=== PATIENT | male | born 1950 | race Caucasian/White ===

== ENCOUNTER 2019-02-16 07:18 | Emergency (ER) | payer SELFPAY ==
--- NOTE | 2019-02-16 07:36 | ED Physician Documentation ---
PD HPI MALE - Stated complaint Stated Complaint: ABD PX - History obtained from History obtained from: Patient - History of Present Illness Timing - onset: How many days ago (2) Timing - duration: Days (2) Timing - details: Abrupt onset, Still present (had some difficulty the past couple of days, then no urine out since last night.) Associated symptoms: Unable to urinate Similar symptoms before: Diagnosis (occurred once prior also when he had flown in to [place], but it resolved itself after half a day. Otherwise has had weak stream for urination for several months.) Recently seen: Not recently seen Review of Systems Constitutional: denies: Fever, Chills, Myalgias Nose: denies: Rhinorrhea / runny nose, Congestion Throat: denies: Sore throat Respiratory: denies: Cough GI: reports: Abdominal Pain (suprapubic), Constipation (mild). denies: Nausea, Vomiting, Diarrhea : reports: Unable to Void Neurologic: denies: Generalized weakness, Near syncope, Altered mental status PD PAST MEDICAL HISTORY - Past Medical History Cardiovascular: None Respiratory: None Neuro: None Endocrine/Autoimmune: None : Benign prostate hypertrophy (takes saw palmetto) - Present Medications Home Medications: Ambulatory Orders Medication Instructions Recorded Confirmed Docusate Sodium 100 mg PO DAILY #15 capsule 02/16/19 Tamsulosin [Flomax] 0.4 mg PO DAILY #15 capsule 02/16/19 - Allergies Allergies/Adverse Reactions: Allergies Allergy/AdvReac Type Severity Reaction Status Date / Time No Known Drug Allergies Allergy Verified 02/16/19 08:00 PD ED PE NORMAL - Vitals Vital signs reviewed: Yes - General General: Alert and oriented X 3, Well developed/nourished, Other (appears very uncomfortable due to urinary retention. ) - Cardiac Cardiac: RRR, No murmur - Respiratory Respiratory: Clear bilaterally - Abdomen Abdomen: Normal bowel sounds, Soft, No organomegaly, Other (fullness and tenderness over suprapubic area. ) - Male Male : Other (normal external genitalia) - Rectal Rectal: Other (soft stool in vault; no impaction) - Back Back: No CVA TTP - Derm Derm: Normal color, Warm and dry Results - Vitals Vitals: Vital Signs - 24 hr 02/16/19 02/16/19 07:25 09:47 Temperature 36.7 C 36.7 C Heart Rate 59 L 59 L Respiratory 24 18 Rate Blood Pressure 194/154 H 137/84 H O2 Saturation 99 99 Oxygen O2 Source Room air - Labs Labs: Laboratory Tests 02/16/19 08:12 Urine Color YELLOW Urine Clarity CLEAR Urine pH 6.0 Ur Specific [place] 1.020 Urine Protein NEGATIVE Urine Glucose (UA) NEGATIVE Urine Ketones 15 H Urine Occult Blood TRACE-INTA Urine Nitrite NEGATIVE Urine Bilirubin NEGATIVE Urine Urobilinogen 0.2 (NORMAL) Ur Leukocyte Esterase NEGATIVE Ur Microscopic Review NOT INDICATED Urine Culture Comments NOT INDICATED PD MEDICAL DECISION MAKING - ED course Complexity details: considered differential (feels much better after robles placed. Rectal done to ensure no impaction contributing.), d/w patient Departure - Departure Disposition: 01 Home, Self Care Clinical Impression: Acute urinary retention Condition: Stable Record reviewed to determine appropriate education?: Yes Instructions: ED Catheter Care Robles, ED Retention Urinary Male Prescriptions: Docusate Sodium 100 mg PO DAILY #15 capsule Tamsulosin [Flomax] 0.4 mg PO DAILY #15 capsule Comments: Leave the Robles catheter in for couple of days and add tamsulosin medication to help reduce prostate size. Continue your saw palmetto. Presumably this will improve your chances of being able to urinate without the catheter compared to today. No signs of bladder infection. Presume you does have some prostate inflammation that should improve with time and also added medication. Return in a couple of days for catheter removal. Stay well-hydrated. Use daily stool softener as well. Discharge Date/Time: 02/16/19 09:30
[2019-02-16 08:21] LABS: BILIRUBIN,URINE NEGATIVE (NEGATIVE); GLUCOSE, URINE (UA) NEGATIVE (NEGATIVE); KETONES,URINE (UA) 15 mg/dL (NEGATIVE); LEUKOCYTE ESTERASE, URINE NEGATIVE (NEGATIVE); NITRITE,URINE NEGATIVE (NEGATIVE); OCCULT BLOOD,URINE TRACE-INTA (NEGATIVE); PROTEIN,URINE NEGATIVE (NEGATIVE); UROBILINOGEN,URINE 0.2 (NORMAL) E.U./dL (NORMAL)
[2019-02-16 08:22] LABS: CLARITY,URINE CLEAR (CLEAR)
[2019-02-16] MEDS ORDERED: TAMSULOSIN 0.4 MG CAPSULE PO STA (08:30)
[2019-02-16 09:48] VITALS: BP 137/84
== END 2019-02-16 09:30 | disposition home or self-care (01) ==
LOC: ED 07:18
DX: N40.1 Benign prostatic hyperplasia with lower urinary tract symptoms (principal); R33.8 Other retention of urine
CPT/HCPCS: 51702; 81003; 99283; A9270; 81001; 87086

== ENCOUNTER 2019-02-19 07:06 | Emergency (ER) | payer SELFPAY ==
--- NOTE | 2019-02-19 07:14 | ED Physician Documentation ---
History of Present Illness - Stated complaint Stated Complaint: CATH REMOVAL - History obtained from History obtained from: Patient - Additonal information Additional information: Patient is a 68-year-old male presenting with request for Gray catheter removal. Catheter was placed in this ED several days ago for urinary retention, likely due to benign prostatic hypertrophy. Patient was placed on Flomax but has been taking this medication compliantly. Patient denies any complications with the catheter or medication, as well as any new fever, chills, nausea, vomiting, abdominal pain, or stool changes. Patient is visiting family from the [facility] and does not have a primary care physician in the area, nor does he have one in the [facility]. No other improving or worsening factors noted. Review of Systems Constitutional: denies: Fever GI: denies: Abdominal Pain, Nausea, Vomiting, Diarrhea : denies: Dysuria PD PAST MEDICAL HISTORY - Past Medical History Cardiovascular: None Respiratory: None Neuro: None Endocrine/Autoimmune: None : Benign prostate hypertrophy (takes andres palmmichelle) - Past Surgical History Past Surgical History: No - Present Medications Home Medications: Ambulatory Orders Medication Instructions Recorded Confirmed Docusate Sodium 100 mg PO DAILY #15 capsule 02/16/19 Tamsulosin [Flomax] 0.4 mg PO DAILY #15 capsule 02/16/19 - Allergies Allergies/Adverse Reactions: Allergies Allergy/AdvReac Type Severity Reaction Status Date / Time No Known Drug Allergies Allergy Verified 02/19/19 07:23 - Social History Does the pt smoke?: No Smoking Status: Never smoker PD ED PE NORMAL - Vitals Vital signs reviewed: Yes - General General: Alert and oriented X 3, No acute distress, Well developed/nourished, Other (Slightly anxious about catheter removal) - HEENT HEENT: Atraumatic, Moist mucous membranes - Cardiac Cardiac: RRR, No murmur - Respiratory Respiratory: No respiratory distress, Clear bilaterally - Abdomen Abdomen: Soft, Non tender, Non distended - Derm Derm: Normal color, Warm and dry, No rash - Extremities Extremities: No deformity, No tenderness to palpate - Neuro Neuro: Alert and oriented X 3, No motor deficit, No sensory deficit - Psych Psych: Normal mood, Normal affect Results - Vitals Vitals: Vital Signs - 24 hr 02/19/19 07:15 Temperature 36.4 C L Heart Rate 80 Respiratory 18 Rate Blood Pressure 161/107 H O2 Saturation 98 Oxygen O2 Source Room air PD MEDICAL DECISION MAKING - ED course Complexity details: reviewed old records, considered differential, d/w patient, d/w family ED course: Patient presenting with request for Gray catheter removal. Patient was seen several days ago in this ED for urinary retention and Gray catheter was placed and patient started on Flomax. Patient denies any complications with catheter and has been taking Flomax compliantly. Catheter removed without issue in the ED. Advised him on supportive cares, diet hydration recommendations, return precautions, and follow-up, particularly with primary care physician and/or urology. Patient and family voiced understanding and are comfortable with discharge plan. Departure - Departure Disposition: 01 Home, Self Care Clinical Impression: Urinary catheter insertion/adjustment/removal Condition: Good Instructions: ED Retention Urinary Male Follow-Up: Vandana Arvizu MD [Provider Admit Priv/Credential] - Comments: Recommend hydration, healthy diet, and normal exercise. Please continue Flomax through completion of prescription to help prevent return of urinary retention. Recommend follow-up with primary care physician and/or urology in the next 2 to 3 weeks, certainly before you return to the [facility]. Return to the ED so sae if you experience urinary retention again, abdominal pain, vomiting, or other concerns.
[2019-02-19 08:04] VITALS: BP 144/89
== END 2019-02-19 08:02 | disposition home or self-care (01) ==
LOC: ED 07:06
DX: Z46.6 Encounter for fitting and adjustment of urinary device (principal); N40.0 Benign prostatic hyperplasia without lower urinary tract symptoms
CPT/HCPCS: 99281

== ENCOUNTER 2019-03-07 20:40 | Emergency (ER) | payer SELFPAY ==
--- NOTE | 2019-03-07 20:46 | ED Physician Documentation ---
PD HPI MALE - Stated complaint Stated Complaint: UNABLE TO URINATE - History obtained from History obtained from: Patient - History of Present Illness Timing - onset: How many days ago (3) Timing - duration: Days (3) Timing - details: Gradual onset Pain level now: 8 Associated symptoms: Urinary frequency, Unable to urinate, Abdominal pain. No: Dysuria, Hematuria (Only passes small dribbles), Back pain Similar symptoms before: Diagnosis Recently seen: Emergency Dept - Additional information Additional information: This is a 68-year-old man who presents with complaints that he is visiting here from the [facility]. He was seen about 3 weeks ago and had to have a Gray catheter placed for acute urinary retention and was given a prescription for Flomax. The Gray was subsequently removed about 4 days afterwards and he was doing fine on the Flomax. He ran out 3 days ago and now the symptoms are returning and is been getting progressively more severe. He can only just get out of dribble of urine advised him about 15 minutes of comfort before it starts building up again. He has not seen blood in the urine. He is rating the pain now to 8.5 out of 10. Denies fever, back pain, leg pain or nausea. He is returning home in 9 days. He had a known pre-existing prostate enlargement that was being treated with saw palmetto and he just thinks the change in the routine with the flight and the diet has made things abruptly more severe. He plans to follow-up with his primary provider when he returns back to the [facility]. Review of Systems Constitutional: denies: Fever GI: denies: Nausea, Vomiting : reports: Dysuria, Frequency, Hesitancy, Unable to Void. denies: Hematuria Musculoskeletal: denies: Back pain Neurologic: reports: Other (No radicular symptoms) PD PAST MEDICAL HISTORY - Past Medical History Cardiovascular: None Respiratory: None Neuro: None Endocrine/Autoimmune: None : Benign prostate hypertrophy (takes saw palmetto) - Past Surgical History Past Surgical History: No - Present Medications Home Medications: Ambulatory Orders Medication Instructions Recorded Confirmed Docusate Sodium 100 mg PO DAILY #15 capsule 02/16/19 Tamsulosin [Flomax] 0.4 mg PO DAILY #15 capsule 02/16/19 Tamsulosin [Flomax] 0.4 mg PO DAILY #30 capsule 03/07/19 - Allergies Allergies/Adverse Reactions: Allergies Allergy/AdvReac Type Severity Reaction Status Date / Time No Known Drug Allergies Allergy Verified 02/19/19 07:23 - Social History Does the pt smoke?: No Smoking Status: Never smoker Does the pt have substance abuse?: No PD ED PE NORMAL - Vitals Vital signs reviewed: Yes - General General: Alert and oriented X 3, No acute distress, Well developed/nourished - HEENT HEENT: Atraumatic - Cardiac Cardiac: RRR, No murmur - Respiratory Respiratory: No respiratory distress, Clear bilaterally - Abdomen Abdomen: Normal bowel sounds, Soft, Other (Tender in the suprapubic region. There is a little fullness but not a large firm bladder.) - Derm Derm: Normal color, No rash - Neuro Neuro: Alert and oriented X 3, Other (No gross neurological deficits.) - Psych Psych: Normal mood, Normal affect Results - Vitals Vitals: Vital Signs - 24 hr 03/07/19 20:43 Temperature 36.4 C L Heart Rate 72 Respiratory 18 Rate Blood Pressure 141/93 H O2 Saturation 99 Oxygen O2 Source Room air - EKG (time done) 2028 Rate: Rate (enter#) Rhythm: NSR QRS: LVH Ischemia: Normal ST segments Compare to prior EKG: Old EKG unavailable - Labs Labs: Laboratory Tests 03/07/19 21:42 Urine Color YELLOW Urine Clarity CLEAR Urine pH 6.0 Ur Specific [place] 1.015 Urine Protein NEGATIVE Urine Glucose (UA) NEGATIVE Urine Ketones TRACE Urine Occult Blood SMALL H Urine Nitrite NEGATIVE Urine Bilirubin NEGATIVE Urine Urobilinogen 0.2 (NORMAL) Ur Leukocyte Esterase NEGATIVE Urine RBC 6-10 H Urine WBC 0-3 Ur Squamous Epith Cells FEW Squamous Urine Bacteria Few Urine Yeast PRESENT Ur Microscopic Review INDICATED Urine Culture Comments NOT INDICATED PD MEDICAL DECISION MAKING - ED course Complexity details: reviewed results, d/w patient ED course: Patient had a about 800 cc of urine in his bladder. A Gray will be left in. He will be started back on the Flomax. The urine showed small blood but no sign of infection. Patient will be returning to the [facility] in 9 days. He does not want to go through security with Gray catheter and so the plan is for him to return and have it removed in the next 4 to 5 days. He plans to follow-up when he returns home with a urologist for screening for prostate cancer and also evaluation on whether or not he needs to have treatment for prostate enlargement. Departure - Departure Disposition: 01 Home, Self Care Clinical Impression: Acute urinary retention Condition: Good Instructions: ED Catheter Care [place], [facility] Retention Urinary Male Follow-Up: doctor,your [Other] Prescriptions: Tamsulosin [Flomax] 0.4 mg PO DAILY #30 capsule Comments: Keep the Gray bag emptied. May return to have the Gray catheter removed in for 5 days if you desire. Max as prescribed daily. You need to make an appointment and follow-up with your primary or urologist when you return home to the [facility].
[2019-03-07 21:45] LABS: BILIRUBIN,URINE NEGATIVE (NEGATIVE); GLUCOSE, URINE (UA) NEGATIVE (NEGATIVE); KETONES,URINE (UA) TRACE mg/dL (NEGATIVE); LEUKOCYTE ESTERASE, URINE NEGATIVE (NEGATIVE); NITRITE,URINE NEGATIVE (NEGATIVE); OCCULT BLOOD,URINE SMALL (NEGATIVE); PROTEIN,URINE NEGATIVE (NEGATIVE); UROBILINOGEN,URINE 0.2 (NORMAL) E.U./dL (NORMAL)
[2019-03-07 21:48] LABS: CLARITY,URINE CLEAR (CLEAR)
[2019-03-07 22:00] LABS: BACTERIA,URINE Few /HPF (None Seen); SQUAMOUS EPITHELIAL CELL,UR FEW Squamous (<= Few)
[2019-03-07 22:01] LABS: YEAST,URINE PRESENT
[2019-03-07 22:26] VITALS: BP 134/90
== END 2019-03-07 22:24 | disposition home or self-care (01) ==
LOC: ED 20:40
DX: N40.1 Benign prostatic hyperplasia with lower urinary tract symptoms (principal); R33.8 Other retention of urine; R35.0 Frequency of micturition; I51.7 Cardiomegaly
CPT/HCPCS: 51702; 81001; 81003; 87086; 99283; 99284

== ENCOUNTER 2019-03-08 14:39 | Emergency (ER) | payer SELFPAY ==
--- NOTE | 2019-03-08 15:23 | ED Physician Documentation ---
PD HPI MALE - Stated complaint Stated Complaint: BLOOD IN URINE - Chief complaint Chief Complaint: UTI - History obtained from History obtained from: Patient - History of Present Illness Timing - onset: Today (He had a Gray placed last night for urinary retention. Today the urine is bloody but without chunks or discomfort.) Review of Systems Constitutional: denies: Fever, Chills Respiratory: denies: Dyspnea, Cough GI: denies: Abdominal Pain, Nausea, Vomiting PD PAST MEDICAL HISTORY - Past Medical History Cardiovascular: None Respiratory: None Neuro: None Endocrine/Autoimmune: None : Benign prostate hypertrophy (takes andres figueredo) - Past Surgical History Past Surgical History: No - Present Medications Home Medications: Ambulatory Orders Medication Instructions Recorded Confirmed Docusate Sodium 100 mg PO DAILY #15 capsule 02/16/19 Tamsulosin [Flomax] 0.4 mg PO DAILY #15 capsule 02/16/19 Tamsulosin [Flomax] 0.4 mg PO DAILY #30 capsule 03/07/19 - Allergies Allergies/Adverse Reactions: Allergies Allergy/AdvReac Type Severity Reaction Status Date / Time No Known Drug Allergies Allergy Verified 02/19/19 07:23 - Social History Does the pt smoke?: No Smoking Status: Never smoker Does the pt have substance abuse?: No PD ED PE NORMAL - Vitals Vital signs reviewed: Yes - General General: Alert and oriented X 3, No acute distress - Abdomen Abdomen: Soft, Non tender - Male Male : Other (Gray in place, the bag has vignesh colored bloody urine in it without being opaque or having clots.) - Derm Derm: Normal color - Extremities Extremities: No calf tenderness / cord - Neuro Neuro: Alert and oriented X 3, Normal speech Results - Vitals Vitals: Vital Signs - 24 hr 03/08/19 14:47 Temperature 36.5 C Heart Rate 72 Respiratory 18 Rate Blood Pressure 139/97 H O2 Saturation 97 Oxygen O2 Source Room air Departure - Departure Disposition: 01 Home, Self Care Clinical Impression: Acute urinary retention Condition: Good Record reviewed to determine appropriate education?: Yes Health Concerns: bloody urine Plan of Treatment: push fluids Care Goals: as below Assessment: as above Instructions: ED Catheter Care Gray Comments: Continue the current plan of care, drink plenty of fluids. Return for discomfort, fevers, back pain or if the urine has clots in it. Follow-up with the urologist on return home.
[2019-03-08 15:32] VITALS: BP 158/105
== END 2019-03-08 15:31 | disposition home or self-care (01) ==
LOC: ED 14:39
DX: N40.1 Benign prostatic hyperplasia with lower urinary tract symptoms (principal); R31.9 Hematuria, unspecified; R33.8 Other retention of urine
CPT/HCPCS: 99282; 99283

== ENCOUNTER 2019-03-14 12:01 | Emergency (ER) | payer SELFPAY ==
--- NOTE | 2019-03-14 12:13 | ED Physician Documentation ---
History of Present Illness - Stated complaint Stated Complaint: MALE /CATH - Chief complaint Chief Complaint: General - History obtained from History obtained from: Patient - Additonal information Additional information: Patient is a 68-year-old male presenting to the ED for request of removal of Gray catheter that was placed here recently. Patient is visiting from the [facility] for the past 1 month and has been in the ED several times for this issue. Patient has not followed up locally with primary care physician or urology, but plans to do so when he returns to the [facility]. Patient is taking Flomax daily. He denies any complications with this recent catheter placement, as well as any other issues such as fever, nausea, vomiting, abdominal pain, stool changes or other complaints. No other improving or worsening factors noted. Review of Systems Constitutional: denies: Fever GI: denies: Abdominal Pain, Nausea, Vomiting, Diarrhea : denies: Dysuria PD PAST MEDICAL HISTORY - Past Medical History Cardiovascular: None Respiratory: None Neuro: None Endocrine/Autoimmune: None GI: None : Benign prostate hypertrophy (takes andres figueredo) Psych: None Musculoskeletal: None Derm: None - Past Surgical History Past Surgical History: No - Present Medications Home Medications: Ambulatory Orders Medication Instructions Recorded Confirmed Docusate Sodium 100 mg PO DAILY #15 capsule 02/16/19 Tamsulosin [Flomax] 0.4 mg PO DAILY #15 capsule 02/16/19 Tamsulosin [Flomax] 0.4 mg PO DAILY #30 capsule 03/07/19 - Allergies Allergies/Adverse Reactions: Allergies Allergy/AdvReac Type Severity Reaction Status Date / Time No Known Drug Allergies Allergy Verified 03/14/19 12:08 - Social History Does the pt smoke?: No Smoking Status: Never smoker Does the pt drink ETOH?: No Does the pt have substance abuse?: No - Immunizations Immunizations are current?: Yes - POLST Patient has POLST: No PD ED PE NORMAL - Vitals Vital signs reviewed: Yes - General General: Alert and oriented X 3, No acute distress, Well developed/nourished - HEENT HEENT: Atraumatic, Moist mucous membranes - Cardiac Cardiac: RRR, No murmur - Respiratory Respiratory: No respiratory distress, Clear bilaterally - Abdomen Abdomen: Normal bowel sounds, Soft, Non tender, Non distended - Derm Derm: Normal color, Warm and dry, No rash - Extremities Extremities: No deformity, No tenderness to palpate - Neuro Neuro: Alert and oriented X 3, No motor deficit, No sensory deficit - Psych Psych: Normal mood, Normal affect Results - Vitals Vitals: Vital Signs - 24 hr 03/14/19 12:03 Temperature 36.6 C Heart Rate 85 Respiratory 18 Rate Blood Pressure 149/100 H O2 Saturation 98 Oxygen O2 Source Room air PD MEDICAL DECISION MAKING - ED course Complexity details: reviewed old records, considered differential, d/w patient, d/w family ED course: Patient presenting for removal of Gray catheter. Patient denies any complications with catheter or other complaints at this time. Advised patient on need to continue Flomax as prescribed. Also recommended close follow-up with primary care physician or urology either locally if he is able to before departing to the [facility] or immediately upon return to the [facility]. Al so advised him on other supportive cares, diet hydration recommendations, recommendations during flying to the [facility], return precautions and follow- up. Patient and family voiced understanding and are comfortable with discharge plan. Departure - Departure Disposition: 01 Home, Self Care Clinical Impression: Encounter for Gray catheter removal Condition: Good Instructions: ED Retention Urinary Male Follow-Up: ZONIA CARBONE [Physician No Access] - Within 3 Days Comments: Recommend follow-up locally with primary care physician or urology if you are able to before departing to the [facility]. Otherwise, recommend establishing appointment for immediately upon return. Please continue Flomax daily. Recommend hydration, frequent urination, exercise, healthy diet.Return to ED sooner if experience worsening symptoms or have other concerns.
[2019-03-14 12:53] VITALS: BP 146/89
== END 2019-03-14 12:52 | disposition home or self-care (01) ==
LOC: ED 12:01
DX: Z46.6 Encounter for fitting and adjustment of urinary device (principal)
CPT/HCPCS: 99282